=== PATIENT | female | born 1950 | race Caucasian/White ===

== ENCOUNTER → 2019-04-04 | Outpatient (CLI) | payer OTHER, MEDICARE ==
[~2019-04-04] VITALS: Ht 157.5 cm; Wt 72.1 kg
[~2019-04-04] MED LIST: ALIVE ONCE DAI1 EACH PO; AZELASTINE205.5 MCG/ NARES; CITRACAL + BON1 EACH PO; COZAAR 50 MG TA50 M1 PO; LIPITOR 20 MG T20 M1 PO; MUCINEX COLD-F177 ML PO; OMEPRAZOLE 20 M20 M1 PO; TIZANIDINE HCL4 M1 PO; TRAMADOL 50 MG50 MG PO; VENLAFAXINE HCL75 MG PO
[2019-04-04 12:58] VITALS: BP 186/85
--- NOTE | 2019-04-04 13:21 | NUR ---
Pain Clinic Assessment: 1. History of Osteoarthritis: Left Lower Extremity Left Upper Extremity Right Lower Extremity Right Upper Extremity BACK History of Rheumatoid Arthritis: N/A 2. Height: 5 ft. 2 in. 157.5 cm. Weight: 159.0 lb. oz. 72.122 kg. Patient's BMI: 29.1 3. Vital Signs: BP: 186/85 Pulse: 73 Resp: 20 Temp: 02 Sat: 95 ECG Mon: 4. Pain Intensity: 9 5. Fall Risk: Dizziness: N Needs help standing or walking: N Fallen in the last 3 months: Y Fall risk comments: 6. Patient on Blood Thinner: None 7. History of Hypertension: Y 8. Opioid Therapy greater than 6 weeks: N Opiate Contract Signed: 9. Risk Assessment Tool Provided: 1-LOW RISK 10. Functional Assessment Tool: / 11. Recreational Drug Use: Never Drug Type: Tobacco Use: Never Smoker Tobacco Type: Amount or Packs/day: How Many Years: Alcohol Use: Yes Frequency: Daily Quant: 2 DRINKS
== END | disposition home or self-care (01) ==
LOC: PAIN 08:21
DX: M54.16 Radiculopathy, lumbar region (principal); G89.29 Other chronic pain; I10 Essential (primary) hypertension; Z87.19 Personal history of other diseases of the digestive system; Z90.49 Acquired absence of other specified parts of digestive tract; Z98.890 Other specified postprocedural states; Z79.899 Other long term (current) drug therapy

== ENCOUNTER → 2019-04-25 | Outpatient (CLI) | payer OTHER, MEDICARE ==
[~2019-04-25] VITALS: Ht 157.5 cm; Wt 72.1 kg
[~2019-04-25] MED LIST changes: +NEURONTIN 300300 M1 PO
--- NOTE | ~2019-04-25 | HPC ---
[facility] [place] [address] PAIN MANAGEMENT CONSULTATION Name: MICHAEL CARLOS Room #: REG MERCEDES BeattyGaye#: [id number] Admission: 04/25/19 Attend Phys: Jorje Vincent MD Discharge: Date of : 48 Report #: [id number] THIS REPORT FOR: cc: Suman Jay,Jorje Che MD ~ CC: Suman Vincent DATE OF SERVICE: 04/25/2019 CHIEF COMPLAINT: "The pain is improved, but I am still having some pain in my buttocks and down in my back." HISTORY: The patient is a 68-year-old female who has been seen in the pain clinic because of low back pain. She has undergone an epidural steroid injection and gleaned benefit from that. She returns today with pain, which continues to be somewhat problematic. She rates her pain as a 5/10. She continues to have pain that radiates down the lower portion of her back and down into the posterior portion of her leg. She notes that it did improve. She has had rehab and found that helped a little bit. She has a feeling of swelling in the low back area. ALLERGIES: THE PATIENT THINKS SHE HAS SOME REACTION TO CORTISONE. Did not have any problems with the Depo-Medrol or triamcinolone at the last injection. CURRENT MEDICATIONS: Celebrex 200 mg, losartan 25 mg 1 tablet, omeprazole 20 mg, venlafaxine ER 75 mg, Fosamax 70 mg, calcium/vitamin 2 tablets, Women's multiple vitamins with minerals, azelastine nasal spray, dicyclomine 10 mg, loperamide 2 tablets of 2 mg, tizanidine 4 mg at bedtime. PAIN CLINIC ASSESSMENT AND PQRS: 1. The patient has some osteoarthritis involving lower extremity on the left. She has some left upper extremity arthritic complaints. She has some right lower extremity complaints. She has some right upper extremity complaints. She has back pain. The patient is not being treated for rheumatoid arthritis. 2. Height 5 feet 2 inches, weight 159 pounds, BMI is 29.1. 3. Vital Signs: Blood pressure 131/77, pulse 73, respiratory rate 14, room air saturation 98%. 4. Pain intensity: 5/10. 5. Fall history: The patient has not fallen in the last 3 months. 6. Blood thinner: The patient is not on a blood thinning medication. 7. Hypertension: The patient is being treated for hypertension. 8. Opioids greater than 6 weeks: The patient receives medications from her primary. 9. Risk assessment tool: [place] [address] PAIN MANAGEMENT CONSULTATION Name: MICHAEL CARLOS Room #: REG MERCEDES Lux#: [id number] Admission: 04/25/19 Attend Phys: Jorje Vincent MD Discharge: Date of : 48 Report #: [id number] 10. Functional assessment tool: 62/70. 11. Recreational drug use: The patient denies. 12. Tobacco: The patient has never smoked. 13. Alcohol: The patient drinks daily. PHYSICAL EXAMINATION: GENERAL: The patient is a well-developed, well-nourished white female. Appears her stated age. She is alert and oriented x 3. Her affect is appropriate. Speech is fluent. HEENT: Normocephalic, atraumatic. Extraocular eye muscles intact. Sclerae nonicteric. Mucous membranes are moist. NECK: Without adenopathy or JVD. HEART: Regular rate. ABDOMEN: Nontender. LUNGS: Generally clear. EXTREMITIES: Upper extremity muscle strength judged to be 5-/5 for the major muscle groups in the upper extremity. Deep tendon reflexes +3 in the upper extremities, +3 in the knees. The patient complains of pain and discomfort with pain that is radiating down into the low back area involving the left hip, leg area. IMPRESSION: 1. Multiple level degenerative disease and facet arthropathy. 2. Left knee pain, AP and [place] views. 3. Left knee and hip degenerative arthritis. 4. Lumbar radiculopathy at the L5-S1 dermatomal distribution. IMPRESSION: Lumbar radiculopathy. RECOMMENDATIONS: We discussed treatment options with the patient. Risks and benefits of an epidural steroid injection were again discussed. Possible complications of the procedure, which could include but are not limited to infection, worsening pain, no improvement in pain, nerve damage were discussed. The patient elects to proceed. PROCEDURE NOTE: The patient was taken to the procedure area. She was then assisted in getting on examination table. A pillow was placed on the abdomen to bolster and improve positioning. Fluoroscopy using anterior, posterior as well as lateral viewing were implemented. The patient's back at the L5-S1 area was sterilely prepped with a Betadine solution and allowed to dry. A 25-gauge needle was then used to anesthetize the L5-S1 area. A 17-gauge Tuohy with loss of resistance technique was used to gain access to the epidural space. There was no CSF, heme or paresthesia. Total of 80 mg Depo-Medrol, 40 mg triamcinolone and 2 mL of 0.25% bupivacaine was injected. A total of 8 seconds fluoroscopy time was used. The patient's pain was 7 at the time of discharge. She will follow up in the future as needed. [facility] [address] [place] [address] PAIN MANAGEMENT CONSULTATION Name: MICHAEL CARLOS [id number] Admission: 04/25/19 Attend Phys: Jorje Vincent MD Discharge: Date of : 48 Report #: [id number] We would like to thank you for letting us participate in her care. We hope she continues to improve. By: [id number] Jorje Vincent MD /nt
[2019-04-25 08:43] VITALS: BP 131/77
--- NOTE | 2019-04-25 08:50 | NUR ---
Pain Clinic Assessment: 1. History of Osteoarthritis: Left Lower Extremity Left Upper Extremity Right Lower Extremity Right Upper Extremity BACK History of Rheumatoid Arthritis: N/A 2. Height: 5 ft. 2 in. 157.5 cm. Weight: 159.0 lb. oz. 72.122 kg. Patient's BMI: 29.1 3. Vital Signs: BP: 131/77 Pulse: 73 Resp: 14 Temp: 02 Sat: 98 ECG Mon: 4. Pain Intensity: 9 5. Fall Risk: Dizziness: N Needs help standing or walking: N Fallen in the last 3 months: N Fall risk comments: 6. Patient on Blood Thinner: None 7. History of Hypertension: Y 8. Opioid Therapy greater than 6 weeks: N Opiate Contract Signed: 9. Risk Assessment Tool Provided: 1-LOW RISK 10. Functional Assessment Tool: / 11. Recreational Drug Use: Never Drug Type: Tobacco Use: Never Smoker Tobacco Type: Amount or Packs/day: How Many Years: Alcohol Use: Yes Frequency: Quant:
== END | disposition home or self-care (01) ==
LOC: PAIN 06:37
DX: M54.16 Radiculopathy, lumbar region (principal); G89.29 Other chronic pain; Z79.899 Other long term (current) drug therapy

== ENCOUNTER → 2019-06-22 | Outpatient (CLI) | payer OTHER, MEDICARE ==
[~2019-06-22] VITALS: Ht 157.5 cm; Wt 75.8 kg
[~2019-06-22] MED LIST changes: +HYDROCODON-ACE1 EAC7 PO
[2019-06-22 13:23] VITALS: BP 145/79
--- NOTE | 2019-06-22 13:30 | NUR ---
Pain Clinic Assessment: 1. History of Osteoarthritis: Left Lower Extremity Left Upper Extremity Right Lower Extremity Right Upper Extremity BACK History of Rheumatoid Arthritis: N/A 2. Height: 5 ft. 2 in. 157.5 cm. Weight: 167.0 lb. oz. 75.751 kg. Patient's BMI: 30.5 3. Vital Signs: BP: 145/79 Pulse: 78 Resp: 18 Temp: 02 Sat: 96 ECG Mon: 4. Pain Intensity: 8-9 5. Fall Risk: Dizziness: N Needs help standing or walking: N Fallen in the last 3 months: N Fall risk comments: 6. Patient on Blood Thinner: None 7. History of Hypertension: Y 8. Opioid Therapy greater than 6 weeks: N Opiate Contract Signed: 9. Risk Assessment Tool Provided: 1-LOW RISK 10. Functional Assessment Tool: 62/70 11. Recreational Drug Use: Never Drug Type: Tobacco Use: Never Smoker Tobacco Type: Amount or Packs/day: How Many Years: Alcohol Use: Yes Frequency: Quant:
--- NOTE | 2019-06-29 11:06 | HPC ---
[facility] [place] [address] PAIN MANAGEMENT CONSULTATION Name: MICHAEL CARLOS Room #: REG MERCEDES Lux#: [id number] Admission: 06/22/19 Attend Phys: Jorje Vincent MD Discharge: Date of : 48 Report #: [id number] THIS REPORT FOR: cc: Suman Jay,Jorje Che MD ~ CC: Suman Vincent DATE OF SERVICE: 06/22/2019 CHIEF COMPLAINT: Pain in the low back and down in the left leg. HISTORY: The patient is a 69-year-old female who has been followed in the pain clinic. She suffers from lumbar radiculopathy. She has undergone epidural steroid injections in the past. At this juncture, she feels that her pain has increased substantially. It has been about 5/10. This has escalated to the level of 8-9/10. She is unable to engage in activities without significant problem. She has notes that the pain has been quite problematic over the last few weeks. She feels that it is slowly creeping up. She has continued to use tramadol and gabapentin. They are not providing a significant amount of relief. Pain is exacerbated when she is working. Walking and exercise is more problematic. Lifting and bending are problematic. At this juncture, she would like to proceed with another epidural steroid injection. ALLERGIES: THE PATIENT THINKS SHE HAS HAD SOME REACTION IN THE PAST WITH CORTISONE. She has not had any problems with use of Depo-Medrol or triamcinolone and her injections in the past. CURRENT MEDICATIONS: Celebrex 200 mg, losartan 25 mg, omeprazole 20 mg, venlafaxine ER 75 mg, Fosamax 70 mg, calcium/vitamins, Women's multiple vitamins with minerals, Azelastine nasal spray, dicyclomine 10 mg, loperamide 2 tablets of 2 mg and tizanidine 4 mg at bedtime. PAIN CLINIC ASSESSMENT AND PQRS: 1. The patient has some osteoarthritic changes involving her lower extremities, particularly on the left. She has some arthritic complaints. She also has some complaint of pain and discomfort in the right lower extremity. She has complaint of pain in the right upper extremity. She has pain in the low back. She is not being treated for rheumatoid arthritis. 2. Height 5 feet 2 inches, weight 167 pounds, BMI is 30. 3. Vital Signs: Blood pressure 145/79, pulse 79, respiratory rate 18, room air saturation 96%. Pain intensity is 8-9/10. 4. Fall risk. The patient has not fallen since we saw her last. 5. Blood thinner. The patient is not on a blood thinning medication. 6. Hypertension. The patient is being treated for hypertension. [address] [address] PAIN MANAGEMENT CONSULTATION Name: MICHAEL CARLOS Room #: REG [facility]#: [id number] Admission: 06/22/19 Attend Phys: Jorje Vincent MD Discharge: Date of : 48 Report #: [id number] 7. Opioids. The patient receives medications from her primary. 8. Risk assessment tool, low for opioid use. 9. Functional assessment tool 62/70. 10. Recreational drug use. The patient denies. 11. Tobacco: The patient has never smoked. 12. Alcohol: The patient drinks daily. PHYSICAL EXAMINATION: GENERAL: The patient is a well-developed, well-nourished white female. Appears her stated age. She is alert and oriented x 3. Her affect is appropriate. Speech is fluent. HEENT: Normocephalic, atraumatic. Extraocular eye muscles intact. Sclerae nonicteric. Mucous membranes are moist. NECK: Without adenopathy or JVD. HEART: Regular rate. ABDOMEN: Nontender. LUNGS: Generally clear. EXTREMITIES: Upper extremity muscle strength judged to be 5-/5 for the major muscle groups in the upper extremity. Deep tendon reflexes in upper extremity +3, lower extremities at the knees +3. The patient complains of pain and discomfort with pain that is radiating down into the lower portion of her back involving the left hip and left leg. IMPRESSION: 1. Multilevel degenerative disc disease and facet arthropathy. 2. Left knee pain. 3. Left hp degenerative arthritis. 4. Lumbar radicular pain in the L5-S1 dermatomal distribution involving the left side. 5. Lumbar radiculopathy. 6. Hypotension. 7. History of stomach ulcer in 2017. RECOMMENDATIONS: We discussed treatment options with the patient. Risks and benefits of an epidural steroid injection were discussed. They include but are not limited to infection, worsening pain, no improvement in pain, nerve damage, bleeding, spinal headache. We also discussed the problems with steroids. We are in a time of COVID-19. We explained to the patient increased risks, which could be encounter should she become effective at this juncture given her older age, use of steroids causing immunosuppression. The patient feels that her pain is quite problematic. She would like to proceed with an injection. She states that she is staying socially distant and remains at home. PROCEDURE NOTE: The patient was taken to the procedure area. She was then assisted in getting on examination table. Her back was sterilely prepped with a Betadine solution. A 0.25% bupivacaine was infiltrated at the L5-S1 area. A [facility] [address] [place] [address] PAIN MANAGEMENT CONSULTATION Name: MICHAEL CARLOS [facility] [id number] Admission: 06/22/19 Attend Phys: Jorje Vincent MD Discharge: Date of : 48 Report #: [id number] 17-gauge Tuohy with loss of resistance technique was used to gain access to the epidural space. There was no CSF, heme, or paresthesia. A total of 80 mg Depo-Medrol, 40 mg triamcinolone, and 2 mL of 0.25% bupivacaine was injected. The patient tolerated the procedure well. There were no complications. She remained in the Pain Clinic for an appropriate amount of time. We would like to thank you for letting us participate in her care. We hope she continues to improve, 10 seconds fluoroscopy time was used. The patient's pain decreased to 0 at the time of discharge. She will stay socially isolated and call us if she has any concerns. <ELECTRONICALLY SIGNED> By: Jorje Vincent MD 06/29/19 [id number] Jorje Vincent MD /nt
== END | disposition home or self-care (01) ==
LOC: PAIN 05-23 10:32
DX: M51.16 Intervertebral disc disorders with radiculopathy, lumbar region (principal); M47.26 Other spondylosis with radiculopathy, lumbar region; G89.29 Other chronic pain; M25.562 Pain in left knee; M16.12 Unilateral primary osteoarthritis, left hip; Z87.19 Personal history of other diseases of the digestive system; Z98.890 Other specified postprocedural states; Z79.899 Other long term (current) drug therapy

== ENCOUNTER → 2019-07-13 | Outpatient (CLI) | payer OTHER, MEDICARE ==
[~2019-07-13] VITALS: Ht 157.5 cm; Wt 76.9 kg
[~2019-07-13] MED LIST changes: +NEURONTIN300 MG PO
--- NOTE | ~2019-07-13 | HPC ---
[facility] [place] [address] PAIN MANAGEMENT CONSULTATION Name: MICHAEL CARLOS Room #: REG MERCEDES Lux#: [id number] Admission: 07/13/19 Attend Phys: Jorje Vincent MD Discharge: Date of : 48 Report #: [id number] THIS REPORT FOR: cc: Suman Jay,Jorje Che MD ~ CC: Suman Vincent DATE OF SERVICE: 07/13/2019 CHIEF COMPLAINT: Still having some pain in the back side feels like I have a basketball in my upper back. HISTORY: The patient is a 69-year-old female who has been followed in the pain clinic. She suffers from lumbar radiculopathy. In the past, she has noted that epidural steroid injections have been helpful. She has noticed a recurrence of her pain. She rates it as 8-9. It has been less than 1 month since her last injection. She has noted the pain that was radiating down into her leg has improved. She still has some axial back pain. She is sleeping better with her current medical regimen. ALLERGIES: Feels like she may have had a REACTION TO CORTISONE in the past. The patient has not had any problem with Depo-Medrol or triamcinolone injections in the past. CURRENT MEDICATIONS: Celebrex 200 mg, losartan 25 mg, omeprazole 20 mg, venlafaxine ER 75 mg, Fosamax 70 mg, calcium/vitamin, Women's multiple vitamins with minerals, azelastine nasal spray, dicyclomine 10 mg, loperamide 2 tablets of 2 mg, and tizanidine 4 mg at bedtime. PAIN CLINIC ASSESSMENT AND PQRS: 1. The patient has some osteoarthritic changes in her low back, particularly on the left side. She has complaints of pain and discomfort in her right lower extremity. This has improved. The patient has some pain in the right upper extremity. Has discomfort in the mid back area. She is not being treated for rheumatoid arthritis. 2. Height 5 feet 2 inches, weight 169 pounds, BMI is 31. 3. Vital signs: Blood pressure 147/78, pulse 80, respiratory rate 14, room air saturation 97%. 4. Pain intensity 09/23. 5. Fall history: The patient has not fallen in the last 3 months. 6. Blood thinner. The patient is not on a blood thinning medication. 7. Hypertension. The patient is being treated for hypertension. 8. Opioid therapy greater than 6 weeks. The patient received [place] [address] PAIN MANAGEMENT CONSULTATION Name: MICHAEL CARLOS [facility] [id number] Admission: 07/13/19 Attend Phys: Jorje Vincent MD Discharge: Date of : 48 Report #: [id number] 9. Risk assessment tool, low for opioid use. 10. Functional assessment tool 62/70. 11. Recreational drug use. The patient denies. 12. Tobacco: The patient has never smoked. 13. Alcohol: The patient occasionally drinks alcoholic beverages. PHYSICAL EXAMINATION: GENERAL: The patient is a well-developed, well-nourished white female. Appears her stated age. She is alert and oriented x 3. Her affect is appropriate. Speech is fluent. She is wearing glasses. The patient has a mask in place. NECK: Without adenopathy or JVD. HEART: Regular rate. ABDOMEN: Nontender. LUNGS: Generally clear. EXTREMITIES: Upper extremity muscle strength judged to be 5/5. Deep tendon reflexes +3 in the upper extremities and lower extremities ____. The patient complains of pain and discomfort in the mid portion of her back. Describes it as like a basketball in the mid back area in the axial area. IMPRESSION: 1. Multilevel degenerative disk disease and facet arthropathy. 2. Left knee pain. 3. Left hip degenerative arthritis. 4. Lumbar pain at the L5-S1 dermatomal distribution, which has improved since the last injection. 5. Lumbar radiculopathy. 6. Hypotension. 7. History of stomach ulcer in 2017. RECOMMENDATIONS: We discussed treatment options with the patient. At this juncture, it is a bit early to consider another epidural steroid injection. We have discussed the use of a low dose of hydrocodone to help with the pain control, she agrees. We discussed the risks and benefits of opioid use chronically. One can develop tolerance. Some patients have developed addiction. She feels that the medication has been helpful. Her pain has improved from a lumbar radicular point of view. It continues to be problematic in the upper axial area. Given that she is unable to take nonsteroidal anti-inflammatory medications on a regular basis because of the stomach ulcer in 2017, we will try hydrocodone 5 mg 1 p.o. t.i.d. A script for her medications has been sent to her pharmacy. She will call us if she has any concerns. We will consider the possibility of an epidural or other injections in the back [address] [address] PAIN MANAGEMENT CONSULTATION Name: MICHAEL CARLOS Room #: GRUPO Lux#: [id number] Admission: 07/13/19 Attend Phys: Jorje Vincent MD Discharge: Date of : 48 Report #: [id number] area in the future. The patient seems to have some problems with the facets. Possibility of facet joint injections might be a reasonable option. By: [id number] Jorje Vincent MD /nt
[2019-07-13 13:19] VITALS: BP 147/78
--- NOTE | 2019-07-13 13:41 | NUR ---
Pain Clinic Assessment: 1. History of Osteoarthritis: Left Lower Extremity Left Upper Extremity Right Lower Extremity Right Upper Extremity BACK History of Rheumatoid Arthritis: N/A 2. Height: 5 ft. 2 in. 157.5 cm. Weight: 169.6 lb. oz. 76.930 kg. Patient's BMI: 31.0 3. Vital Signs: BP: 147/78 Pulse: 80 Resp: 14 Temp: 02 Sat: 97 ECG Mon: 4. Pain Intensity: 8 5. Fall Risk: Dizziness: N Needs help standing or walking: N Fallen in the last 3 months: N Fall risk comments: 6. Patient on Blood Thinner: None 7. History of Hypertension: Y 8. Opioid Therapy greater than 6 weeks: N Opiate Contract Signed: 9. Risk Assessment Tool Provided: 1-LOW RISK 10. Functional Assessment Tool: 62/70 11. Recreational Drug Use: Never Drug Type: Tobacco Use: Never Smoker Tobacco Type: Amount or Packs/day: How Many Years: Alcohol Use: Yes Frequency: Quant:
== END ==
LOC: PAIN 06:58
DX: M47.819 Spondylosis without myelopathy or radiculopathy, site unspecified (principal); M25.541 Pain in joints of right hand; M06.841 Other specified rheumatoid arthritis, right hand; I10 Essential (primary) hypertension; F11.90 Opioid use, unspecified, uncomplicated; Z79.899 Other long term (current) drug therapy

== ENCOUNTER → 2019-08-24 | Outpatient (CLI) | payer OTHER, MEDICARE | END | disposition home or self-care (01) | LOC: PAIN 06:45 | DX: M54.16 Radiculopathy, lumbar region (principal); G89.29 Other chronic pain; Z79.899 Other long term (current) drug therapy ==

== ENCOUNTER → 2019-10-19 | Outpatient (CLI) | payer OTHER, MEDICARE ==
[~2019-10-19] VITALS: Ht 157.5 cm; Wt 78.9 kg
[~2019-10-19] MED LIST changes: +AMITRIPTYLINE H10 M3 PO; +HYDROCODONE-AP1 EA11 PO
[2019-10-19 12:20] VITALS: BP 140/87
--- NOTE | 2019-10-19 12:29 | NUR ---
Pain Clinic Assessment: 1. History of Osteoarthritis: Left Lower Extremity Left Upper Extremity Right Lower Extremity Right Upper Extremity BACK History of Rheumatoid Arthritis: DENIES 2. Height: 5 ft. 2 in. 157.5 cm. Weight: 174.0 lb. oz. 78.926 kg. Patient's BMI: 31.8 3. Vital Signs: BP: 140/87 Pulse: 77 Resp: 14 Temp: 02 Sat: 98 ECG Mon: 4. Pain Intensity: 10 5. Fall Risk: Dizziness: N Needs help standing or walking: N Fallen in the last 3 months: Y Fall risk comments: FELL 5 DAYS AGO FELL OUT OF BED. DID NOT SEEK MEDICAL ATTN 6. Patient on Blood Thinner: None 7. History of Hypertension: Y 8. Opioid Therapy greater than 6 weeks: N Opiate Contract Signed: 9. Risk Assessment Tool Provided: 1-LOW RISK 10. Functional Assessment Tool: / 11. Recreational Drug Use: Never Drug Type: Tobacco Use: Never Smoker Tobacco Type: Amount or Packs/day: How Many Years: Alcohol Use: Yes Frequency: Quant:
== END | disposition home or self-care (01) ==
LOC: PAIN 06:56
PROVIDERS: ATTEND Anesthesiology Pain Medicine
DX: M54.16 Radiculopathy, lumbar region (principal); G89.29 Other chronic pain; I10 Essential (primary) hypertension; Z98.890 Other specified postprocedural states; Z79.899 Other long term (current) drug therapy; Z87.19 Personal history of other diseases of the digestive system

== ENCOUNTER → 2019-12-21 | Outpatient (CLI) | payer OTHER, MEDICARE ==
[~2019-12-21] VITALS: Ht 157.5 cm; Wt 78.9 kg
--- NOTE | ~2019-12-21 | HPC ---
[facility] [place]oke [place] [address] PAIN MANAGEMENT CONSULTATION Name: MICHAEL CARLOS Room #: REG [facility] Beatty.#: [id number] Admission: 12/21/19 Attend Phys: Jorje Vincent MD Discharge: Date of : 48 Report #: [id number] THIS REPORT FOR: cc: Suman Jay,Jorje Che MD ~ CC: Suman Vincent DATE OF SERVICE: 12/21/2019 CHIEF COMPLAINT: Pain in the upper extremity, lower extremity and back. HISTORY: The patient is a 69-year-old female who has been followed in the pain clinic because of lumbar radiculopathy. She returns today indicating that her pain continues to be problematic. She fell about 5 days ago. States that she fell out of bed. She did not seek medical attention. She rates her pain today as a 10/10. She is taking her medications. She is walking with a limp in her left leg. Denies any new bowel or bladder dysfunction. She returned to the pain clinic with thoughts of undergoing an epidural steroid injection in the future. Epidural steroids in the past have been beneficial. ALLERGIES: The patient has undergone epidural steroid injection with no reaction, but feels that she has had a reaction in the past to cortisone. CURRENT MEDICATIONS: Celebrex 200 mg, losartan 25 mg, omeprazole 20 mg, venlafaxine 25 mg, Fosamax 70 mg, calcium, multivitamins, Women's multivitamin with minerals, azelastine nasal spray, dicyclomine 10 mg, loperamide 2 tablets 2 mg, tizanidine 4 mg at bedtime. PAIN CLINIC ASSESSMENT AND PQRS: 1. The patient has some osteoarthritic changes in her back. It involves the left side. She also has pain and discomfort in her right lower extremity. She has pain in the right upper extremity involving her shoulder. She is not being treated for rheumatoid arthritis. 2. Height 5 feet 2 inches, weight 174 pounds, BMI is 31. 3. Vital signs: Blood pressure 162/84, pulse 92, respiratory rate 18, room air saturation 93%. 4. Pain intensity 10/10. 5. Fall history: The patient fell from bed. 6. Blood thinner. The patient is not on a blood thinning medication. 7. Hypertension. The patient is being treated for hypertension. 8. Opioids greater than 6 weeks. The patient receives medication from [facility] the pain clinic. 9. Risk assessment tool, low for opioid use. 10. Functional assessment tool 62/70. [address] [address] PAIN MANAGEMENT CONSULTATION Name: MICHAEL CARLOS [id number] Admission: 12/21/19 Attend Phys: Jorje Vincent MD Discharge: Date of : 48 Report #: [id number] 11. Recreational drug use: The patient denies. 12. Tobacco: The patient has never smoked. 13. Alcohol: The patient occasionally drinks alcoholic beverages. PHYSICAL EXAMINATION: GENERAL: The patient is a well-developed, well-nourished white female. Appears her stated age. She is alert and oriented x 3. Her affect is appropriate. Speech is fluent. HEENT: Normocephalic, atraumatic. Extraocular eye muscles intact. Sclerae nonicteric. Mucous membranes are moist. The patient is wearing a facial covering. She is wearing glasses. NECK: Without adenopathy or JVD. HEART: Regular rate. LUNGS: Clear to auscultation. ABDOMEN: Nontender. EXTREMITIES: Upper extremity muscle strength judged to be 5-/5 for the upper extremity. The patient has some discomfort in the lower portion of her back with pain that is radiating down the lower portion of her left side and into the left leg. IMPRESSION: 1. Multilevel degenerative disk disease with facet arthropathy. 2. Left knee pain. 3. Left hip degenerative arthritis. 4. Lumbar pain in the L5-S1 dermatomal distribution with pain that radiates down the left leg. 5. History of stomach ulcers in 2006. RECOMMENDATIONS: We discussed treatment options with the patient. At this juncture, we will continue with the patient's medications. A script for her medications have ____. The patient will return to the Pain Clinic in the future with possibility of undergoing another epidural steroid injection at the appointment time. She has been staying socially isolated because of COVID-19. She is aware that medications can become less effective as time goes on because of development of tolerance. A script for medications have been rewritten. She will continue with gabapentin 300 mg t.i.d. and hydrocodone 7.5 mg 1 p.o. t.i.d. We would like to thank you for letting us participate in her care. We hope she continues to improve. By: [id number] Jorje Vincent MD /pierre
[2019-12-21 14:05] VITALS: BP 162/84
--- NOTE | 2019-12-21 14:09 | NUR ---
Pain Clinic Assessment: 1. History of Osteoarthritis: Left Lower Extremity Left Upper Extremity Right Lower Extremity Right Upper Extremity BACK History of Rheumatoid Arthritis: DENIES 2. Height: 5 ft. 2 in. 157.5 cm. Weight: 174.0 lb. oz. 78.926 kg. Patient's BMI: 31.8 3. Vital Signs: BP: 162/84 Pulse: 92 Resp: 18 Temp: 02 Sat: 93 ECG Mon: 4. Pain Intensity: 10 5. Fall Risk: Dizziness: N Needs help standing or walking: N Fallen in the last 3 months: N Fall risk comments: FELL 5 DAYS AGO FELL OUT OF BED. DID NOT SEEK MEDICAL ATTN 6. Patient on Blood Thinner: None 7. History of Hypertension: Y 8. Opioid Therapy greater than 6 weeks: N Opiate Contract Signed: 9. Risk Assessment Tool Provided: 1-LOW RISKy 10. Functional Assessment Tool: / 11. Recreational Drug Use: Never Drug Type: Tobacco Use: Never Smoker Tobacco Type: Amount or Packs/day: How Many Years: Alcohol Use: Yes Frequency: Quant:
== END ==
LOC: PAIN 06:57
PROVIDERS: ATTEND Anesthesiology Pain Medicine
DX: M51.36 Other intervertebral disc degeneration, lumbar region (principal); M79.641 Pain in right hand; M79.642 Pain in left hand; M79.604 Pain in right leg; M79.605 Pain in left leg; M25.562 Pain in left knee; M16.12 Unilateral primary osteoarthritis, left hip

== ENCOUNTER → 2020-01-04 | Outpatient (CLI) | payer OTHER, MEDICARE ==
[~2020-01-04] VITALS: Ht 157.5 cm; Wt 78.5 kg
--- NOTE | ~2020-01-04 | HPC ---
[facility] [place] [address] PAIN MANAGEMENT CONSULTATION Name: MICHAEL CARLOS Room #: REG [facility] Lux#: [id number] Admission: 01/04/20 Attend Phys: Jorje Vincent MD Discharge: Date of : 48 Report #: [id number] THIS REPORT FOR: cc: Suman Jay,Jorje Che MD ~ CC: Suman Vincent DATE OF SERVICE: 01/04/2020 PRIMARY CARE PHYSICIAN: Suman Jay DO CHIEF COMPLAINT: Low back and left leg pain. HISTORY: The patient is a 69-year-old female who has been followed in the pain clinic because of lumbar radiculopathy. She has undergone epidural steroid injections. She finds that these injections have been beneficial. She has returned today with the hopes of undergoing an injection. She has had pain, which has been problematic for over a year. This was particularly problematic in 01/2019. She describes her pain now as a constant, sharp tenderness. Rates it as a 10/10. Walking, sitting, standing can be problematic. She is not sure of anything that significantly improves her pain. She denies any new bowel or bladder dysfunction. ALLERGIES: The patient states that she has had a reaction in the past to CORTISONE. She has not had reactions to epidural steroid injection. CURRENT MEDICATIONS: Celebrex 200 mg, losartan 25 mg, omeprazole 20 mg, venlafaxine 25 mg, Fosamax 70 mg, calcium, multivitamins, Women's multivitamin with minerals, azelastine nasal spray, dicyclomine 10 mg, loperamide 2 tablets of 2 mg, and tizanidine 4 mg at bedtime. PAIN CLINIC ASSESSMENT AND PQRS: 1. The patient has some osteoarthritic changes in her back. She is noting pain on the left side. She also has pain and discomfort in her right lower extremity. She has pain in the right upper extremity involving her shoulder. She is not being treated for rheumatoid arthritis. 2. Height 5 feet 2 inches, weight 175 pounds, BMI is 31. 3. Vital Signs: Blood pressure 160/86, pulse 93, respiratory rate 18, room air saturation 94%. 4. Pain intensity, 11/23. 5. Fall history: The patient has not fallen since we saw her last. 6. Blood thinner. The patient is not on a blood thinning medication. 7. Hypertension. The patient is being treated for hypertension. 8. Opioids greater than 6 weeks. The [place] [address] PAIN MANAGEMENT CONSULTATION Name: MICHAEL CARLOS [facility] [id number] Admission: 01/04/20 Attend Phys: Jorje Vincent MD Discharge: Date of : 48 Report #: [id number]. 9. Risk assessment tool, low for opioid use. 10. Functional assessment tool, 62/70. 11. Recreational drug use: The patient denies. 12. Tobacco: The patient has never smoked. 13. Alcohol: The patient occasionally drinks alcoholic beverages. PHYSICAL EXAMINATION: GENERAL: The patient is a well-developed, well-nourished white female. Appears her stated age. She is alert and oriented x 3. Her affect is appropriate. Speech is fluent. HEENT: Normocephalic, atraumatic. Extraocular eye muscles intact. Sclerae nonicteric. Mucous membranes are moist. The patient is wearing a facial covering. She is wearing glasses. NECK: Without adenopathy or JVD. HEART: Regular rate. LUNGS: Clear to auscultation. ABDOMEN: Nontender. MUSCULOSKELETAL: Upper extremity muscle strength judged to be 5-/5 for the major muscle groups. The patient has some discomfort in the lower portion of her back. Has pain that is radiating down into the left side and then into her left leg. IMPRESSION: 1. Multilevel degenerative disk disease with facet arthropathy. 2. Left knee pain. 3. Left hip pain with degenerative arthritis. 4. Lumbar pain in the L4, L5 and S1 dermatomal distribution that radiates down to the left leg. 5. History of stomach ulcers in 2006. RECOMMENDATIONS: We discussed treatment options with the patient. Risks and benefits of an epidural steroid injection were again discussed. They include but are not limited to infection, worsening of pain, no improvement in pain, nerve damage, bleeding, and the patient elects to proceed. We discussed the problems with COVID-19. It is pandemic. The patient may have a more difficult outcome should she become infected with COVID after the injection. She is aware and elects to proceed. PROCEDURE NOTE: The patient was taken to the procedure area. She was then assisted in getting on the examination table. Her back was sterilely prepped with a Betadine solution. A 0.25% bupivacaine was infiltrated at the L5-S1 area. Fluoroscopy using anterior, posterior as well as lateral viewing were implemented. A total of 80 mg Depo-Medrol, 40 mg triamcinolone and 2 mL of 0.25% bupivacaine was injected. The patient tolerated the procedure well. There were no complications. She remained in the Pain Clinic for an appropriate [address] [address] PAIN MANAGEMENT CONSULTATION Name: MICHAEL CARLOS Room #: REG [facility]#: [id number] Admission: 01/04/20 Attend Phys: Jorje Vincent MD Discharge: Date of : 48 Report #: [id number] amount of time. Approximately 9 seconds fluoroscopy time was used. The patient will return to the Pain Clinic as needed. We would like to thank you for letting us participate in her care. We hope she continues to improve. By: [id number] Jorje Vincent MD /PORFIRIO
[2020-01-04 12:42] VITALS: BP 150/100
--- NOTE | 2020-01-04 12:47 | NUR ---
Pain Clinic Assessment: 1. History of Osteoarthritis: Left Lower Extremity Left Upper Extremity Right Lower Extremity Right Upper Extremity BACK History of Rheumatoid Arthritis: DENIES 2. Height: 5 ft. 2 in. 157.5 cm. Weight: 173.0 lb. oz. 78.472 kg. Patient's BMI: 31.6 3. Vital Signs: BP: 150/100 Pulse: 91 Resp: 16 Temp: 02 Sat: 96 ECG Mon: 4. Pain Intensity: 10 5. Fall Risk: Dizziness: N Needs help standing or walking: N Fallen in the last 3 months: N Fall risk comments: FELL 5 DAYS AGO FELL OUT OF BED. DID NOT SEEK MEDICAL ATTN 6. Patient on Blood Thinner: None 7. History of Hypertension: Y 8. Opioid Therapy greater than 6 weeks: N Opiate Contract Signed: 9. Risk Assessment Tool Provided: 1-LOW RISK 10. Functional Assessment Tool: / 11. Recreational Drug Use: Never Drug Type: Tobacco Use: Never Smoker Tobacco Type: Amount or Packs/day: How Many Years: Alcohol Use: Yes Frequency: Quant:
== END | disposition home or self-care (01) ==
LOC: PAIN 07:03
PROVIDERS: ATTEND Anesthesiology Pain Medicine
DX: M51.16 Intervertebral disc disorders with radiculopathy, lumbar region (principal); M47.26 Other spondylosis with radiculopathy, lumbar region; G89.29 Other chronic pain; I10 Essential (primary) hypertension; M16.12 Unilateral primary osteoarthritis, left hip; Z98.890 Other specified postprocedural states; Z79.899 Other long term (current) drug therapy; Z87.19 Personal history of other diseases of the digestive system; Z88.8 Allergy status to other drugs, medicaments and biological substances

== ENCOUNTER → 2020-03-14 | Outpatient (CLI) | payer OTHER, MEDICARE ==
[~2020-03-14] VITALS: Ht 157.5 cm; Wt 77.1 kg
[2020-03-14 09:43] VITALS: BP 169/96
--- NOTE | 2020-03-14 09:49 | NUR ---
Pain Clinic Assessment: 1. History of Osteoarthritis: Left Lower Extremity Left Upper Extremity Right Lower Extremity Right Upper Extremity BACK History of Rheumatoid Arthritis: DENIES 2. Height: 5 ft. 2 in. 157.5 cm. Weight: 170.0 lb. oz. 77.112 kg. Patient's BMI: 31.1 3. Vital Signs: BP: 169/96 Pulse: 96 Resp: 18 Temp: 02 Sat: 97 ECG Mon: 4. Pain Intensity: 9 5. Fall Risk: Dizziness: N Needs help standing or walking: N Fallen in the last 3 months: N Fall risk comments: FELL 5 DAYS AGO FELL OUT OF BED. DID NOT SEEK MEDICAL ATTN 6. Patient on Blood Thinner: None 7. History of Hypertension: Y 8. Opioid Therapy greater than 6 weeks: N Opiate Contract Signed: 9. Risk Assessment Tool Provided: 1-LOW RISK 10. Functional Assessment Tool: 62/70 11. Recreational Drug Use: Never Drug Type: Tobacco Use: Never Smoker Tobacco Type: Amount or Packs/day: How Many Years: Alcohol Use: Yes Frequency: Daily Quant: 1 WINE
== END ==
LOC: PAIN 06:55
PROVIDERS: ATTEND Anesthesiology Pain Medicine
DX: M51.17 Intervertebral disc disorders with radiculopathy, lumbosacral region (principal); Z79.891 Long term (current) use of opiate analgesic; Z72.89 Other problems related to lifestyle

== ENCOUNTER → 2020-04-11 | Outpatient (CLI) | payer OTHER, MEDICARE ==
[~2020-04-11] VITALS: Ht 157.5 cm; Wt 76.9 kg
[2020-04-11 13:36] VITALS: BP 142/78
--- NOTE | 2020-04-11 13:39 | NUR ---
Pain Clinic Assessment: 1. History of Osteoarthritis: Left Lower Extremity Left Upper Extremity Right Lower Extremity Right Upper Extremity BACK History of Rheumatoid Arthritis: DENIES 2. Height: 5 ft. 2 in. 157.5 cm. Weight: 169.6 lb. oz. 76.930 kg. Patient's BMI: 31.0 3. Vital Signs: BP: 142/78 Pulse: 78 Resp: 18 Temp: 02 Sat: 94 ECG Mon: 4. Pain Intensity: 9 5. Fall Risk: Dizziness: N Needs help standing or walking: N Fallen in the last 3 months: Y Fall risk comments: FELL 5 DAYS AGO FELL OUT OF BED. DID NOT SEEK MEDICAL ATTN 6. Patient on Blood Thinner: None 7. History of Hypertension: Y 8. Opioid Therapy greater than 6 weeks: N Opiate Contract Signed: 9. Risk Assessment Tool Provided: 1-LOW RISK 10. Functional Assessment Tool: 62/70 11. Recreational Drug Use: Never Drug Type: Tobacco Use: Never Smoker Tobacco Type: Amount or Packs/day: How Many Years: Alcohol Use: No Frequency: Quant:
== END | disposition home or self-care (01) ==
LOC: PAIN 07:03
PROVIDERS: ATTEND Anesthesiology Pain Medicine
DX: M51.16 Intervertebral disc disorders with radiculopathy, lumbar region (principal); M47.26 Other spondylosis with radiculopathy, lumbar region; M54.5 Low back pain; G89.29 Other chronic pain; M25.562 Pain in left knee; M19.90 Unspecified osteoarthritis, unspecified site; Z98.890 Other specified postprocedural states; Z79.899 Other long term (current) drug therapy; Z87.19 Personal history of other diseases of the digestive system; Z90.710 Acquired absence of both cervix and uterus

== ENCOUNTER → 2020-06-13 | Outpatient (CLI) | payer OTHER, MEDICARE ==
[~2020-06-13] VITALS: Ht 157.5 cm; Wt 77.1 kg
[~2020-06-13] MED LIST changes: +ALEVE220 M1 PO
[2020-06-13 10:26] VITALS: BP 170/84
--- NOTE | 2020-06-13 10:36 | NUR ---
Pain Clinic Assessment: 1. History of Osteoarthritis: Left Lower Extremity Left Upper Extremity Right Lower Extremity Right Upper Extremity BACK History of Rheumatoid Arthritis: DENIES 2. Height: 5 ft. 2 in. 157.5 cm. Weight: 170.0 lb. oz. 77.112 kg. Patient's BMI: 31.1 3. Vital Signs: BP: 170/84 Pulse: 77 Resp: 16 Temp: 02 Sat: 95 ECG Mon: 4. Pain Intensity: 9 5. Fall Risk: Dizziness: N Needs help standing or walking: N Fallen in the last 3 months: N Fall risk comments: FELL 5 DAYS AGO FELL OUT OF BED. DID NOT SEEK MEDICAL ATTN 6. Patient on Blood Thinner: None 7. History of Hypertension: Y 8. Opioid Therapy greater than 6 weeks: Y Opiate Contract Signed: 01/04/20 9. Risk Assessment Tool Provided: 1-LOW RISK 10. Functional Assessment Tool: 11. Recreational Drug Use: Never Drug Type: Tobacco Use: Never Smoker Tobacco Type: Amount or Packs/day: How Many Years: Alcohol Use: No Frequency: Quant:
== END | disposition home or self-care (01) ==
LOC: PAIN 08:25
PROVIDERS: ATTEND Anesthesiology Pain Medicine
DX: M51.16 Intervertebral disc disorders with radiculopathy, lumbar region (principal); M47.26 Other spondylosis with radiculopathy, lumbar region; I10 Essential (primary) hypertension; M19.90 Unspecified osteoarthritis, unspecified site; Z98.890 Other specified postprocedural states; Z79.899 Other long term (current) drug therapy; Z96.611 Presence of right artificial shoulder joint; Z87.19 Personal history of other diseases of the digestive system; Z90.49 Acquired absence of other specified parts of digestive tract

== ENCOUNTER 2020-09-17 06:20 | Inpatient (IN) | payer OTHER, MEDICARE ==
[2020-08-15 15:36] LABS: HEMATOCRIT 40.8 % (37.0-47.0); MCH 32.8 pg (26.0-34.0); MCHC 34.4 g/dL (28.0-37.0); MCV 95.5 fL (80.0-100.0); RBC 4.27 mil/uL (4.20-5.00); RDW 16.2 % (10.5-14.5); WBC 8.7 thou/uL (4.0-11.0)
[2020-08-15 15:45] LABS: URINE BILIRUBIN NEGATIVE (Negative); URINE BLOOD NEGATIVE (Negative); URINE CLARITY CLEAR; URINE COLOR YELLOW; URINE GLUCOSE-RANDOM* NEGATIVE (Negative); URINE KETONES NEGATIVE (Negative); URINE NITRITE-REFLEX NEGATIVE (Negative); URINE PROTEIN (DIPSTICK) NEGATIVE (Negative); URINE SPECIFIC GRAVITY 1.025 (1.005-1.035); URINE UROBILINOGEN 0.2 E.U./dl (0.2-1.0)
[2020-08-15 15:57] LABS: URINE LEUKOCYTES-REFLEX 1+ (Negative)
[2020-08-15 16:00] LABS: BACTERIA-REFLEX 1-9 Few /HPF (None Seen); CASTS None Seen /LPF (None Seen); CRYSTALS None Seen /LPF (None Seen); SQUAMOUS 0-3 Few /LPF (0-3); URINE RBC None Seen /HPF (NONE SEEN); URINE WBC-REFLEX 6-15 Few /HPF (0-5)
[2020-08-15 16:18] LABS: ALBUMIN 3.8 g/dL (3.4-5.0); CALCIUM 10.1 mg/dL (8.5-10.1); CREATININE 1.4 mg/dL (0.6-1.0); POTASSIUM 3.8 mmol/L (3.5-5.1); TOTAL BILIRUBIN 0.3 mg/dL (0.2-1.0); TOTAL PROTEIN 7.8 g/dL (6.4-8.2)
[2020-09-17] VITALS (7 sets, daily range): BP systolic 117–149; BP diastolic 64–85
[~2020-09-17] VITALS: Ht 157.5 cm; Wt 73.0 kg
[~2020-09-17 06:20] MED LIST changes: +FOSAMAX 70 MG T70 MG PO; +LOSARTAN POTAS100 MG PO; +MUCINEX600 MG PO
[2020-09-17 07:52] LABS: APTT 26.7 Seconds (24.5-32.8); INR 0.89; PROTIME 9.8 Seconds (10.5-12.1)
--- NOTE | 2020-09-17 14:35 | NUR ---
ASSESSMENT: CM REVIEWED CHART AND SPOKE WITH PATIENT AT THE BEDSIDE. PT APPEARS ALERT AND ORIENTED X4. PT IS S/P LUMBER LAMINECTOMY. PT REPORTS LIVING IN A HOUSE ALONE. PT REPORTS NO STEPS TO ENTER OR ONCE INSIDE. PT REPORTS SHE NORMALLY USES A CANE BUT ALSO HAS A WALKER AT HOME. PT REPORTS THAT SHE HAD HH YEARS AGO IN [facility] BUT UNSURE THE AGENCY. PT REPORTS HER DAUGHTER [place] AND CAN ASSIST HER IF NEEDED. CM DISCUSSED ROLE. PT DOES NOT ANTICIPATE HAVING ANY NEEDS AT DISCHARGE. PHYSICAL THERAPY IS TO WORK WITH PATIENT. CM WILL CONTINUE TO FOLLOW TO ASSIST NEEDED.
--- NOTE | 2020-09-17 18:19 | NUR ---
PATIENT ALERT AND ORINTED X4, ON ROOM AIR, CAME FROM PACU TO ROOM 434, TOLERATING DIET WELL. PATIENT STATED SHE AGREED WITH HER AGE AND ANASTESHIA SINCE I LIVE ALONE IT'D BE SAFER TO STAY TONIGHT AND GO TOMORROW. VITAL SIGNS STABLE AND AFBRIELE. CALL LIGHT WITH IN REACH, WILL CONTINUE TO MONITOR, BED ALARM ON.
--- NOTE | 2020-09-18 01:00 | NUR ---
ASSESSED AT START OF SHIFT, PT RESTING IN BED. A&O4 UP WITH SBA TO THE BATHROOM WITH A CANE. AQUQCEL DRESSING ON LOWEL BACK. HYDROCODONE AND MUSCLE RELAXANT GIVEN. IV INTACT FLUIDS AND ABX GIVEN. DENIES NAUSEA AND VOIMITING. FALL PREC IN PLACE AND CALL LIGHT AT REACH WILL CONT TO MONITOR.
[2020-09-18 03:30] LABS: ABSOLUTE NEUTROPHILS 8.9 thou/uL (1.4-8.2); BASOPHILS 1.3 % (0.0-2.0); EOSINOPHILS 0.2 % (0.0-3.0); HEMATOCRIT 36.8 % (37.0-47.0); HEMOGLOBIN 12.2 gm/dL (12.0-15.0); LYMPHOCYTES 11.9 % (24.0-44.0); MCHC 33.3 g/dL (28.0-37.0); MCV 96.3 fL (80.0-100.0); PLATELET COUNT 300 thou/uL (150-400); POLYS 79.6 % (36.0-66.0); RBC 3.82 mil/uL (4.20-5.00); RDW 15.2 % (10.5-14.5); WBC 11.1 thou/uL (4.0-11.0)
[2020-09-18 03:50] LABS: CALCIUM 8.4 mg/dL (8.5-10.1); CREATININE 1.2 mg/dL (0.6-1.0)
[2020-09-18 04:15] VITALS: BP 116/70
[2020-09-18 07:33] VITALS: BP 140/73
--- NOTE | 2020-09-18 09:33 | NUR ---
Assumed care of pt at 0700. Pt a&ox4. Dressing on back with old drainage. Will change prior to discharge. Pain controlled with prn pain meds. Cleared by physical therapy. Will likely discharge to home today. Call light within reach. Wiil continue to monitor.
[2020-09-18 11:27] VITALS: BP 140/73
--- NOTE | 2020-09-18 13:07 | NUR ---
ON-GOING ASSESSMENT: CM REVIEWED CHART. PT HAS ORDERS TO DISCHARGE HOME TODAY NO NEEDS. PT DID WELL WITH THERAPY. CASE CLOSED.
== END 2020-09-18 14:15 | disposition home or self-care (01) | DRG 517 ==
LOC: OR → TBA 06:23 → OR 08:33 → 4S 10:31 → OR 13:18 → 4S 09-18 14:15
PROVIDERS: Nurse Practitioner; ADMIT Specialist; ATTEND Specialist
PROC: 01NB0ZZ Release Lumbar Nerve, Open Approach (ICD-10-PCS; principal; 2020-09-17)
DX: M48.061 Spinal stenosis, lumbar region without neurogenic claudication (principal); I10 Essential (primary) hypertension; E78.5 Hyperlipidemia, unspecified; M19.90 Unspecified osteoarthritis, unspecified site; F32.9 Major depressive disorder, single episode, unspecified; F41.9 Anxiety disorder, unspecified; G89.29 Other chronic pain; M54.9 Dorsalgia, unspecified; K21.9 Gastro-esophageal reflux disease without esophagitis; M71.38 Other bursal cyst, other site; Z90.49 Acquired absence of other specified parts of digestive tract; Z82.49 Family history of ischemic heart disease and other diseases of the circulatory system
CPT/HCPCS: 10102; 50010; 50101; 50402; 55340; 56525; 56528; 56532; 57103; 58457; 58567; 62110; 62900; 70005